=== PATIENT | female | born 1980 | race Caucasian/White ===

== ENCOUNTER 2016-09-23 17:12 | Emergency (ER) | payer SELFPAY ==
[2016-09-23 17:22] VITALS: BP 118/68
[2016-09-23] MEDS ORDERED: Sodium Chloride 0.9% 10 ML Syringe FLUSH PRN (17:52)
[2016-09-23] MEDS ORDERED: Sodium Chloride 0.9% 1,000 ML IV ONE (17:52)
[2016-09-23] MEDS ORDERED: Pantoprazole 40 MG Vial IVPUSH ONE (17:52)
[2016-09-23] MEDS ORDERED: Iopamidol 612 MG/ML 100 ML Bottle IVPUSH ONE (18:01)
[2016-09-23] MEDS ORDERED: Sodium Chloride 0.9% 100 ML IV ONE (18:01)
[2016-09-23 18:30] LABS: CHLORIDE,CL 102 mmol/L (98-107); SODIUM,NA 139 mmol/L (136-145)
--- NOTE | 2016-09-23 18:46 | EDM.PDOC ---
ED HPI GENERAL MEDICAL PROBLEM - General Chief Complaint: General Stated Complaint: hematemesis Time Seen by Provider: 09/23/16 17:38 Source of Information: Reports: Patient History Limitations: Reports: No limitations - History of Present Illness INITIAL COMMENTS - FREE TEXT/NARRATIVE: Patient reports chronic issues dealing with abdominal pain. 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 She does take depakote and states she has not had a drink in 5 years since her seizure. She presents today with complaints of bloody emesis on Wednesday as well as today. She is also complaining of blood when she wiped today. Denies that it was bloody diarrhea. She reports surgical history to include appendectomy, tubal ligation. No allergies or other medication use except for the depakote. She states that for the last 5 years she has not been able to eat enough to gain any weight. She has complaints of not feeling hungry and weight loss at times. She denies fever, shortness of breath, chest pain, recent illness or contact with anyone ill that she is aware. She does smoke 1/2 PPD. Onset: gradual Onset Date: 09/21/16 Duration: Chronic, Intermittent Location: Reports: abdomen Quality: Reports: Ache Severity: moderate Associated Symptoms: Reports: no other symptoms - Related Data Allergies Allergy/AdvReac Type Severity Reaction Status Date / Time No Known Drug Allergies Allergy Other Verified 09/23/16 17:22 Home Meds: Home Meds Divalproex Sodium [Depakote ER] 250 mg PO BID 01/15/14 [History] Past Medical History Neurological History: Reports: Migraines, Seizure Social & Family History - Tobacco Use Smoking Status *Q: Current Every Day Smoker Years of Tobacco use: 15 Packs/Tins Daily: 0.5 - Alcohol Use Days Per Week of Alcohol Use: 0 - Recreational Drug Use Recreational Drug Use: Yes Recreational Drug Type: Reports: Marijuana/Hashish Recreational Drug Use Frequency: Monthly ED ROS GENERAL - Review of Systems Review Of Systems: See Below Constitutional: Reports: no symptoms HEENT: Reports: No symptoms Respiratory: Reports: No Symptoms Cardiovascular: Reports: No symptoms Endocrine: Reports: no symptoms GI/Abdominal: Reports: Abdominal pain, Bloody stool, Hematemesis, Nausea, Vomiting : Reports: no symptoms Musculoskeletal: Reports: no symptoms Skin: Reports: no symptoms Neurological: Reports: No Symptoms Psychiatric: Reports: No symptoms Hematologic/Lymphatic: Reports: no symptoms Immunologic: Reports: no symptoms ED EXAM, GENERAL - Physical Exam Exam: See Below Exam Limited By: No limitations General Appearance: alert, WD/WN, no apparent distress Eye Exam: bilateral eye: EOMI, PERRL Ears: normal TMs Throat/Mouth: Normal inspection, Normal oropharynx, Other (poor dentition) Head: atraumatic, normocephalic Neck: normal inspection Respiratory/Chest: no respiratory distress, lungs clear, normal breath sounds, no accessory muscle use, chest non-tender Cardiovascular: normal peripheral pulses, regular rate, rhythm, no edema, no murmur Peripheral Pulses: 2+: posterior tibial (L), posterior tibial (R), dorsalis pedis (L), dorsalis pedis (R) GI/Abdominal: Normal Bowel Sounds, Soft, Tender, Other (crepitus on palpation to all quadrants) Extremities: normal inspection, normal range of motion, non-tender, no pedal edema, normal capillary refill Neurological: alert, oriented, CN II-XII intact, normal cognition, normal gait, normal reflexes, no motor/sensory deficits Psychiatric: normal affect, normal mood Lymphatic: no adenopathy Course - Vital Signs Last Recorded V/S: Last Vital Signs Temp 36.0 C 09/23/16 17:20 Pulse 82 09/23/16 17:20 Resp 18 09/23/16 17:20 BP 118/68 09/23/16 17:20 Pulse Ox 97 09/23/16 17:20 - Orders/Labs/Meds Orders: Active Orders 24 hr Category Date Time Status Abdomen Pelvis w Cont [CT] Stat Exams 09/23/16 17:52 Ordered AMYLASE [CHEM] Stat Lab 09/23/16 17:52 Ordered C-REACTIVE PROTEIN [CHEM] Stat Lab 09/23/16 17:52 Ordered COMPREHENSIVE METABOLIC PN,CMP [CHEM] Stat Lab 09/23/16 17:52 Ordered LIPASE [CHEM] Stat Lab 09/23/16 17:52 Ordered OCCULT BLD GASTRIC Stat Lab 09/23/16 17:56 Ordered Sodium Chloride 0.9% [Normal Saline] 1,000 ml Med 09/23/16 17:52 Ordered IV .BOLUS Sodium Chloride 0.9% [Saline Flush] Med 09/23/16 17:52 Ordered 10 ml FLUSH ASDIRECTED PRN Saline Lock Insert [OM.PC] Routine Oth 09/23/16 17:52 Ordered Medication Orders Sodium Chloride (Normal Saline) 1,000 mls @ 999 mls/hr IV .BOLUS ONE Stop: 09/23/16 18:52 Last Admin: 09/23/16 18:03 Dose: 999 mls/hr Sodium Chloride (Saline Flush) 10 ml FLUSH ASDIRECTED PRN PRN Reason: Keep Vein Open Labs: Laboratory Tests 09/23/16 09/23/16 09/23/16 Range/Units 18:00 18:02 18:02 WBC 10.9 H (4.0-10.0) x10^3/uL RBC 4.23 (4.00-5.50) x10^6/uL Hgb 13.5 (12.0-16.0) g/dL Hct 39.2 (33.0-47.0) % MCV 92.7 (78.0-93.0) fL MCH 31.9 (26.0-32.0) pg MCHC 34.4 (32.0-36.0) g/dL RDW Coeff of Kailee 12.6 (10.0-15.0) % Plt Count 169 (130-400) x10^3/uL Neut % (Auto) 69.5 (50.0-80.0) % Lymph % (Auto) 20.7 L (25.0-50.0) % Mathews % (Auto) 7.5 (2.0-11.0) % Eos % (Auto) 1.5 (0.0-4.0) % Baso % (Auto) 0.8 (0.2-1.2) % Sodium 139 (136-145) mmol/L Potassium 3.6 (3.5-5.1) mmol/L Chloride 102 (98-107) mmol/L Carbon Dioxide 28 (21-32) mmol/L BUN 7 (7-18) mg/dL Creatinine 0.7 (0.55-1.02) mg/dL Est Cr Clr Drug Dosing 82.71 mL/min Estimated GFR (MDRD) > 60 Glucose 85 (74-106) mg/dL Lactic Acid (0.4-2.0) mmol/L Calcium 8.7 (8.5-10.1) mg/dL Corrected Calcium 9.02 (8.5-10.1) mg/dL Total Bilirubin 0.4 (0.2-1.0) mg/dL AST 26 (15-37) U/L ALT 27 (14-59) U/L Alkaline Phosphatase 81 (46-116) U/L Total Protein 7.2 (6.4-8.2) g/dL Albumin 3.6 (3.4-5.0) g/dL Globulin 3.6 Albumin/Globulin Ratio 1.00 Amylase 102 (25-115) U/L Lipase 80 (73-393) U/L Urine Color Dark yellow H (YELLOW) Urine Appearance Cloudy H (CLEAR) Urine pH 6.0 (5.0-8.0) Ur Specific [place] >=1.030 Urine Protein 30 H (NEGATIVE) mg/dL Urine Glucose (UA) Negative (NEGATIVE) mg/dL Urine Ketones Trace H (NEGATIVE) mg/dL Urine Occult Blood Small H (NEGATIVE) Urine Nitrite Negative (NEGATIVE) Urine Bilirubin Negative (NEGATIVE) Urine Urobilinogen 0.2 (0.2) EU/dL Ur Leukocyte Esterase Negative (NEGATIVE) Urine RBC 0-5 (NOT SEEN) /HPF Urine WBC 0-5 (NOT SEEN) /HPF Ur Squamous Epith Cells Many H (NEGATIVE) /HPF Amorphous Sediment Few Urine Bacteria Few H (NEGATIVE) /HPF Urine Mucus Many H (NEGATIVE) /LPF 09/23/16 Range/Units 18:02 WBC (4.0-10.0) x10^3/uL RBC (4.00-5.50) x10^6/uL Hgb (12.0-16.0) g/dL Hct (33.0-47.0) % MCV (78.0-93.0) fL MCH (26.0-32.0) pg MCHC (32.0-36.0) g/dL RDW Coeff of Kailee (10.0-15.0) % Plt Count (130-400) x10^3/uL Neut % (Auto) (50.0-80.0) % Lymph % (Auto) (25.0-50.0) % Mathews % (Auto) (2.0-11.0) % Eos % (Auto) (0.0-4.0) % Baso % (Auto) (0.2-1.2) % Sodium (136-145) mmol/L Potassium (3.5-5.1) mmol/L Chloride (98-107) mmol/L Carbon Dioxide (21-32) mmol/L BUN (7-18) mg/dL Creatinine (0.55-1.02) mg/dL Est Cr Clr Drug Dosing mL/min Estimated GFR (MDRD) Glucose (74-106) mg/dL Lactic Acid 0.7 (0.4-2.0) mmol/L Calcium (8.5-10.1) mg/dL Corrected Calcium (8.5-10.1) mg/dL Total Bilirubin (0.2-1.0) mg/dL AST (15-37) U/L ALT (14-59) U/L Alkaline Phosphatase (46-116) U/L Total Protein (6.4-8.2) g/dL Albumin (3.4-5.0) g/dL Globulin Albumin/Globulin Ratio Amylase (25-115) U/L Lipase (73-393) U/L Urine Color (YELLOW) Urine Appearance (CLEAR) Urine pH (5.0-8.0) Ur Specific [place] Urine Protein (NEGATIVE) mg/dL Urine Glucose (UA) (NEGATIVE) mg/dL Urine Ketones (NEGATIVE) mg/dL Urine Occult Blood (NEGATIVE) Urine Nitrite (NEGATIVE) Urine Bilirubin (NEGATIVE) Urine Urobilinogen (0.2) EU/dL Ur Leukocyte Esterase (NEGATIVE) Urine RBC (NOT SEEN) /HPF Urine WBC (NOT SEEN) /HPF Ur Squamous Epith Cells (NEGATIVE) /HPF Amorphous Sediment Urine Bacteria (NEGATIVE) /HPF Urine Mucus (NEGATIVE) /LPF Meds: Medications Generic Name Dose Route Start Last Admin Trade Name Freq PRN Reason Stop Dose Admin Sodium Chloride 1,000 mls @ 999 mls/hr 09/23/16 17:52 09/23/16 18:03 Normal Saline IV 09/23/16 18:52 999 mls/hr .BOLUS ONE Administration Sodium Chloride 10 ml 09/23/16 17:52 Saline Flush FLUSH ASDIRECTED PRN Keep Vein Open Discontinued Medications Generic Name Dose Route Start Last Admin Trade Name Freq PRN Reason Stop Dose Admin Sodium Chloride 100 mls @ 2 mls/sec 09/23/16 18:01 Normal Saline IV 09/23/16 18:02 ONETIME ONE Iopamidol 100 ml 09/23/16 18:01 Isovue-300 (61%) IVPUSH 09/23/16 18:02 ONETIME ONE Pantoprazole Sodium 40 mg 09/23/16 17:52 09/23/16 18:03 Protonix Iv IVPUSH 09/23/16 17:53 40 mg ONETIME ONE Administration - Re-Assessments/Exams Free Text/Narrative Re-Assessment/Exam: 09/23/16 20:08 No abnormalities found on CT exam with the exception of some cystic changes to her ovaries. Minimal free air. Labs grossly normal, urine did exhibit mucous, blood, bacteria. Negative nitrates, leukocytes. Not drinking well Departure - Departure Time of Disposition: 20:02 Disposition: Home, Self-Care 01 Condition: good Clinical Impression: Chronic GI bleeding, Functional gastrointestinal disturbance - Discharge Information Instructions: Gastrointestinal Bleeding, Esophagogastroduodenoscopy, Colonoscopy, [id number] Forms: ED Department Discharge Additional Instructions: You need to follow up with primary care regarding the intermittent blood in your emesis and bowel movement from today. You should have a referral to a supervisor drying and winding for a possible EGD and/or Colonoscopy You have some ovarian cystic changes that you should follow up with a TICKET DISPENSER CHANGER Stay hydrated, you may want to start a regimen of prilosec over the counter Please return if you have any sudden bloody vomiting or red bloody stools that persist Call us with any questions or if you are unsure whether or not to return - My Orders Last 24 Hours: My Active Orders 09/23/16 17:52 Abdomen Pelvis w Cont [CT] Stat AMYLASE [CHEM] Stat C-REACTIVE PROTEIN [CHEM] Stat COMPREHENSIVE METABOLIC PN,CMP [CHEM] Stat LIPASE [CHEM] Stat Sodium Chloride 0.9% [Normal Saline] 1,000 ml IV .BOLUS Sodium Chloride 0.9% [Saline Flush] 10 ml FLUSH ASDIRECTED PRN Saline Lock Insert [OM.PC] Routine 09/23/16 17:56 OCCULT BLD GASTRIC Stat - Assessment/Plan Last 24 Hours: My Active Orders 09/23/16 17:52 Abdomen Pelvis w Cont [CT] Stat AMYLASE [CHEM] Stat C-REACTIVE PROTEIN [CHEM] Stat COMPREHENSIVE METABOLIC PN,CMP [CHEM] Stat LIPASE [CHEM] Stat Sodium Chloride 0.9% [Normal Saline] 1,000 ml IV .BOLUS Sodium Chloride 0.9% [Saline Flush] 10 ml FLUSH ASDIRECTED PRN Saline Lock Insert [OM.PC] Routine 09/23/16 17:56 OCCULT BLD GASTRIC Stat
== END 2016-09-23 20:15 | disposition home or self-care (01) ==
LOC: VM.ED 17:12
DX: K92.2 Gastrointestinal hemorrhage, unspecified (principal); F17.210 Nicotine dependence, cigarettes, uncomplicated
CPT/HCPCS: 36415; 74177; 80053; 81001; 82150; 83605; 83690; 85025; 86140; 96361; 96374; 99285; C9113; J7030; J7050; Q9967; 99284-GF

== ENCOUNTER 2016-10-02 07:44 | Day surgery (SDC) | payer SELFPAY ==
[~2016-10-02 07:44] MED LIST: Lactated Ringers 1,000 ML IV SCH; Sodium Chloride 0.9% 10 ML Syringe FLUSH PRN
[2016-10-02] MEDS ORDERED: fentaNYL 100 MCG/2 ML SDV ONE (08:23)
[2016-10-02] MEDS ORDERED: Propofol 200 MG/20 ML SDV ONE ×2 (08:23→10:18)
[2016-10-02 10:02] VITALS: BP 95/59
--- NOTE | 2016-10-02 15:02 | OR ---
PREOPERATIVE DIAGNOSES: Hemoptysis, nausea and vomiting. POSTOPERATIVE DIAGNOSES: Significant antritis with superficial ulcerations, mild gastroesophageal reflux disease. PROCEDURE PROPOSED: Upper gastroscope panendoscopy with duodenal and antral biopsies. PROCEDURE DONE: Upper gastroscope panendoscopy with duodenal and antral biopsies. INDICATION: This is a 36-year-old female bothered with lot of nausea, vomiting, hemoptysis, early satiety and felt should be gastroscope. TECHNIQUE: The patient was brought to the endoscopy suite, placed in the left lateral decubitus position. She was sedated per BREAD PANNER with propofol and the flexible video gastroscope was then passed transorally and under visualization as well into the duodenum. The proximal and distal duodenum appeared normal. Biopsies were taken from the duodenum. This antrum did reveal significant antritis with some mild deformity and some superficial ulcerations and definitely an area that could have been bleeding. The body of the stomach otherwise looked healthy. Biopsies were also taken from the antrum. The GE junction did not reveal any hiatal hernia, but she did have 1 tiny ulceration right at the GE junction. There was no signs of any stenosis or Schatzki's ring and the remainder of the esophagus was normal as the scope was then withdrawn. She tolerated the procedure well. FINAL IMPRESSION: 1. Mild gastroesophageal reflux disease. 2. Significant antritis with superficial ulcerations. PLAN: The patient will be treated with Prilosec daily for 3 months. She also needs to cut back on her caffeine consumption. She does drink a lot of Mountain Dew. She also smokes half pack to a pack per day and she needs to stop smoking and try to avoid aspirin, ibuprofen, and Aleve and follow up with Dr. Elmore as needed. SCM: 10/02/2016 09:45:38 MODL: 10/02/2016 14:51:23 /[id number]
--- NOTE | 2016-10-05 08:17 | OR ---
PREOPERATIVE DIAGNOSIS: Hematochezia. POSTOPERATIVE DIAGNOSIS: Ulcerated internal hemorrhoids, otherwise normal colon. PLANNED PROCEDURE: Total flexible colonoscopy. PROCEDURE DONE: Total flexible colonoscopy with multiple random biopsies. INDICATION: This is a 36-year-old female, who has been having some abdominal discomfort, some intermittent hematochezia and felt that she should be colonoscoped in addition to her EGD. TECHNIQUE: The patient was already sedated with propofol per NET APPLICATIONS DEVELOPER. She was in the left lateral decubitus position. The flexible video colonoscope was then passed transanally and under visualization advanced to the cecum. The examination of the colon was essentially normal throughout the ascending, transverse, descending, sigmoid and rectal colon, but I did do random biopsies throughout all areas of the colon. In the anal area, she was noted to have what appeared to be a partially healed ulcerated internal hemorrhoid which likely has been the source of her bleeding and will be treated as such. The scope was then withdrawn. She tolerated the procedure well. FINAL IMPRESSION: 1. Normal colonoscopic exam. 2. Healing ulcerated internal hemorrhoids. PLAN: Anusol HC suppositories nightly for 10 nights. Follow up with Dr. Elmore as needed. Return to clinic if the bleeding persists for possible hemorrhoid banding. SCM: 10/02/2016 09:45:38 MODL: 10/02/2016 14:52:56 /[id number]
--- NOTE | 2016-10-30 07:50 | LETTER ---
10/28/2016 RE: ARIEL MANTILLA PERSONS : 1980 Dear Ariel, The biopsies taken from your small intestine were entirely normal, this would indicate that you do not have any evidence of celiac disease or sprue. I also took some biopsies from your stomach which revealed some mild gastritis which is basically just an inflammation and this could be related to taking medications like ibuprofen or aspirin, and possibly if you drink alcohol it could be related to that also. This is a very common finding. There was also no evidence of the bacteria known as Helicobacter pylori in your stomach. Also the biopsies taken from your colon revealed no pathologic abnormalities, this would indicate you do not have any underlying colitis of any type. If you have any further questions regarding this feel free to call. Respectfully,
== END 2016-10-02 11:10 | disposition home or self-care (01) ==
LOC: VM.SDS 07:44
PROVIDERS: ATTEND Surgery
DX: K29.50 Unspecified chronic gastritis without bleeding (principal); K25.9 Gastric ulcer, unspecified as acute or chronic, without hemorrhage or perforation; K31.9 Disease of stomach and duodenum, unspecified; K21.9 Gastro-esophageal reflux disease without esophagitis; K64.8 Other hemorrhoids; G40.409 Other generalized epilepsy and epileptic syndromes, not intractable, without status epilepticus; Z79.899 Other long term (current) drug therapy; F17.210 Nicotine dependence, cigarettes, uncomplicated; Z98.51 Tubal ligation status; Z98.890 Other specified postprocedural states
CPT/HCPCS: 00810; 43239; 45380; J2704; J3010; J7120

== ENCOUNTER 2021-04-01 13:00 | Emergency (ER) | payer MEDICAID, OTHER ==
[2021-04-01] MEDS ORDERED: Ketorolac 30 MG/ML SDV IM ONE (13:26)
[2021-04-01] MEDS ORDERED: Promethazine 25 MG/ML SDV IM ONE (13:26)
[2021-04-01 13:28] VITALS: BP 100/57; PULSE 88
--- NOTE | 2021-04-01 13:30 | EDM.PDOC ---
ED HPI GENERAL MEDICAL PROBLEM - General Chief Complaint: Headache Stated Complaint: HEADACHE,NAUSEA,HOT FLASHES Time Seen by Provider: 04/01/21 13:10 Source of Information: Reports: Patient - History of Present Illness INITIAL COMMENTS - FREE TEXT/NARRATIVE: Patient presents the ER with ongoing left frontal/temporal headache that started about 10:00 last night she rates the pain today is a 10 out of 10 she tried taking her seizure medication and some Tylenol which is not helped with the headache but is made her very sleepy. She states this is not the worst headache of her life and she has multiple headaches weekly. She is currently under treatment with a neurologist and last seen him about a month ago she has had numerous work-ups with CTs and MRIs and all have been negative. She also states she has had some nausea with vomiting x3 since last night 2 times this morning. She denies any vision changes or hearing changes any weakness numbness or tingling or loss of sensation. She states this typically fits her headache pattern. Duration: Hour(s): Quality: Reports: Throbbing Severity: Severe Improves with: Reports: Rest Worsens with: Reports: None Associated Symptoms: Reports: No Other Symptoms, Headaches. Denies: Confusion, Chest Pain, Cough, cough w sputum, Diaphoresis, Fever/Chills, Loss of Appetite, Nausea/Vomiting, Shortness of Breath, Weakness Treatments STOKER INSTALLATION MECHANIC: Reports: Acetaminophen Headache Pain Score (Numeric/FACES): 8 - Related Data Allergies Allergy/AdvReac Type Severity Reaction Status Date / Time No Known Drug Allergies Allergy Other Verified 04/01/21 13:24 Home Meds: Home Meds Divalproex Sodium [Depakote ER] 250 mg PO BID 01/15/14 [History] Acetaminophen [Tylenol Extra Strength] 1,000 mg PO Q6H PRN 09/29/16 [History] Past Medical History Gastrointestinal History: Reports: Other (See Below) Other Gastrointestinal History: HAS BEEN VOMITING BLOOD AND IS UNABLE TO GAIN WT Neurological History: Reports: Seizure, Other (See Below) Other Neuro History: encephalopathy Psychiatric History: Reports: Addiction, Anxiety, Depression, Suicide Attempt Endocrine/Metabolic History: Reports: Osteoporosis - Past Surgical History GI Surgical History: Reports: Appendectomy, Hernia Repair/Other Female Surgical History: Reports: Tubal Ligation ED ROS GENERAL - Review of Systems Review Of Systems: See Below Constitutional: Reports: No Symptoms HEENT: Reports: No Symptoms. Denies: Vision Change Respiratory: Reports: No Symptoms Cardiovascular: Reports: No Symptoms Endocrine: Reports: No Symptoms GI/Abdominal: Reports: No Symptoms : Reports: No Symptoms Musculoskeletal: Reports: No Symptoms Skin: Reports: No Symptoms Neurological: Reports: Headache. Denies: Confusion, Dizziness, Numbness, Paresthesia, Pre-Existing Deficit, Seizure, Syncope, Tingling, Trouble Speaking, Difficulty Walking, Weakness, Change in Speech, Gait Disturbance Psychiatric: Reports: No Symptoms Hematologic/Lymphatic: Reports: No Symptoms Immunologic: Reports: No Symptoms - Physical Exam Exam: See Below Exam Limited By: No Limitations General Appearance: Alert, WD/WN, No Apparent Distress, Other (Upon entering the room for the exam patient is laying down on the bed no acute distress noted had to slightly shake her to wake her up patient states she is is very tired status post taking her seizure medication which is pretty normal for her when she takes her seizure medication and has a migraine) Eye Exam: Bilateral Eye: EOMI, Normal Inspection, PERRL Ears: Normal External Exam, Normal Canal, Hearing Grossly Normal, Normal TMs Throat/Mouth: Normal Inspection, Normal Lips, Normal Teeth, Normal Gums, Normal Oropharynx, Normal Voice, No Airway Compromise Head Exam: Atraumatic, Normocephalic. No: Scalp Tenderness, Sinus Tenderness Neck: Normal Inspection, Supple, Non-Tender, Full Range of Motion, Other (Negative nuchal signs or symptoms). No: Lymphadenopathy (L) Respiratory/Chest: No Respiratory Distress, Lungs Clear, Normal Breath Sounds, No Accessory Muscle Use, Chest Non-Tender Cardiovascular: Normal Peripheral Pulses, Regular Rate, Rhythm, No Edema, No Gallop, No JVD, No Murmur, No Rub GI/Abdominal: Normal Bowel Sounds, Soft, Non-Tender, No Organomegaly. No: Guarding, Rigid, Rebound, Tender Neuro Exam (Abbreviated): Alert, Oriented, CN II-XII Intact, Normal Cognition, Normal Reflexes, No Motor/Sensory Deficits, Other (5/ 5 upper extremity lower extremity strength bilateral) Back Exam: Full Range of Motion Extremities: Normal Inspection, Normal Range of Motion, Non-Tender, No Pedal Edema Psychiatric: Normal Affect, Normal Mood Skin Exam: Warm, Dry, Intact, Normal Color, No Rash Course - Vital Signs Text/Narrative:: Toradol 30 mg IM Phenergan 12.5 mg IM Patient was rechecked states she feels much better she is okay with discharge disposition and going home Zofran and Phenergan prescription given to the patient Last Recorded V/S: Last Vital Signs Temp 36.9 C 04/01/21 13:05 Pulse 88 04/01/21 13:05 Resp 16 04/01/21 13:05 BP 100/57 L 04/01/21 13:05 Pulse Ox 96 04/01/21 13:05 - Orders/Labs/Meds Meds: Medications Discontinued Medications Generic Name Dose Route Start Last Admin Trade Name Romain PRN Reason Stop Dose Admin Ketorolac Tromethamine 30 mg 04/01/21 13:26 04/01/21 13:34 Ketorolac 30 Mg/Ml Sdv IM 04/01/21 13:27 30 mg ONETIME ONE Administration Promethazine HCl 12.5 mg 04/01/21 13:26 04/01/21 13:34 Promethazine 25 Mg/Ml Sdv IM 04/01/21 13:27 12.5 mg ONETIME ONE Administration Departure - Departure Time of Disposition: 14:30 Disposition: Home, Self-Care 01 Condition: Good Clinical Impression: Migraine headache, Nausea and vomiting - Discharge Information *PRESCRIPTION DRUG MONITORING PROGRAM REVIEWED*: No *COPY OF PRESCRIPTION DRUG MONITORING REPORT IN PATIENT STEPHANY: No Instructions: Migraine Headache, [id number] Forms: ED Department Discharge Care Plan Goals: Continue take all your medications as directed You may take [id number] Tylenol 1-2 tablet every 4-6 hours for the next 24 hours as needed you may also continue to take ibuprofen [id number] 400 to 600 mg every 6-8 hours for the next 24 hours Follow-up with your primary care provider in the next 24 to 48 hours You may take the Zofran 4 mg every 4-6 hours as needed #30 you may take the Phenergan 25 mg 1 tablet every 4-6 hours as needed number of 12 Return to the emergency room if anything changes or gets worse Sepsis Event Note (ED) - Focused Exam Vital Signs: Vital Signs Temp Pulse Resp BP Pulse Ox 04/01/21 13:05 36.9 C 88 16 100/57 L 96 - Problem List & Annotations (1) Migraine headache SNOMED Code(s): 42073172 Code(s): G43.909 - MIGRAINE, UNSP, NOT INTRACTABLE, WITHOUT STATUS MIGRAINOSUS Status: Acute Current Visit: No (2) Nausea and vomiting SNOMED Code(s): 53843291 Code(s): R11.2 - NAUSEA WITH VOMITING, UNSPECIFIED Status: Acute Current Visit: No
== END 2021-04-01 14:35 | disposition home or self-care (01) ==
LOC: VM.ED 13:00
DX: G43.909 Migraine, unspecified, not intractable, without status migrainosus (principal)
CPT/HCPCS: 96372; 99283; J1885; J2550

== ENCOUNTER 2022-06-17 20:38 | Emergency (ER) | payer MEDICAID ==
[2022-06-17 21:00] VITALS: BP 149/70; PULSE 77
== END 2022-06-17 22:50 | disposition home or self-care (01) ==
LOC: VM.ED 20:38
DX: S82.832A Other fracture of upper and lower end of left fibula, initial encounter for closed fracture (principal); W19.XXXA Unspecified fall, initial encounter
CPT/HCPCS: 73600-LT; 73620-LT; 99283

== ENCOUNTER 2022-09-24 21:28 | Emergency (ER) | payer MEDICAID ==
[2022-09-24] MEDS ORDERED: Prochlorperazine 10 MG/2 ML SDV IM ONE (21:43)
[2022-09-24] MEDS ORDERED: Ketorolac 30 MG/ML SDV IM ONE (21:43)
[2022-09-24] MEDS ORDERED: Take Home: Ondansetron 4 MG Tab.DIS, 5 Tab Pack PO ONE (22:57)
[2022-09-24] MEDS ORDERED: SUMAtriptan 6 MG/0.5 ML SDV SUBCUT ONE (22:57)
[2022-09-24 23:13] VITALS: BP 120/70; PULSE 78
== END 2022-09-24 23:10 | disposition home or self-care (01) ==
LOC: VM.ED 21:28
DX: G43.909 Migraine, unspecified, not intractable, without status migrainosus (principal); Z72.0 Tobacco use
CPT/HCPCS: 96372; 99283; J0780; J1885; J3030; Q0162

== ENCOUNTER 2022-12-18 18:55 | Emergency (ER) | payer SELFPAY ==
[2022-12-18 19:21] VITALS: BP 154/88; PULSE 77
[2022-12-18] MEDS: Lidocaine 1% 10 ML MDV INJECT ONE (19:32)
[2022-12-18] MEDS: Diphtheria,Pertussis(Acell),Tetanus Vaccine 0.5 ML Syringe IM ONE (19:32)
== END 2022-12-18 19:41 | disposition home or self-care (01) ==
LOC: VM.ED 18:55
DX: S61.215A Laceration without foreign body of left ring finger without damage to nail, initial encounter (principal); F17.210 Nicotine dependence, cigarettes, uncomplicated; Z23 Encounter for immunization; W26.9XXA Contact with unspecified sharp object(s), initial encounter
CPT/HCPCS: 12001; 90471; 90715; 99282-25; 99283; J3490

== ENCOUNTER 2024-08-30 07:33 | Emergency (ER) | payer SELFPAY ==
[2024-08-30] MEDS: Ondansetron 4 MG/2 ML SDV IVPUSH ONE (07:57)
[2024-08-30] MEDS: Lactated Ringers 1,000 ML IV ONE (07:57)
[2024-08-30 08:15] LABS: BASOPHILS PERCENT AUTO 0.2 % (0.2-1.2); EOSINOPHILS ABSOLUTE AUTO 0.1 x10^3/uL (0.0-0.5); EOSINOPHILS PERCENT AUTO 0.6 % (0.0-4.0); HEMATOCRIT 39.4 % (33.0-47.0); HEMOGLOBIN 13.9 g/dL (12.0-16.0); IMMATURE GRAN ABSOLUTE AUTO 0.04 x10^3/uL (0.00-0.07); MEAN CORPUSCULAR HEMOGLOBIN 32.3 pg (26.0-32.0); MEAN CORPUSCULAR HGB CONC 35.3 g/dL (32.0-36.0); MEAN CORPUSCULAR VOLUME 91.6 fL (78.0-93.0); MONOCYTES PERCENT AUTO 6.4 % (2.0-11.0); NEUTROPHILS ABSOLUTE AUTO 13.1 x10^3/uL (1.8-7.7); NEUTROPHILS PERCENT AUTO 80.6 % (50.0-80.0); PLATELET COUNT,PLT 235 x10^3/uL (130-400); WHITE BLOOD CELL COUNT,WBC 16.3 x10^3/uL (4.0-10.0)
[2024-08-30 08:24] LABS: A/G RATIO 0.92; ALANINE AMINOTRANSFERASE,ALT 22 U/L (14-59); ALBUMIN 3.6 g/dL (3.4-5.0); ALKALINE PHOSPHATASE 89 U/L (46-116); ANION GAP 15.6 mmol/L (5-15); ASPARTATE AMNIOTRANSFERASE,AST 25 U/L (15-37); BILIRUBIN TOTAL 0.4 mg/dL (0.2-1.0); BLOOD UREA NITROGEN,BUN 8 mg/dL (7-18); CALCIUM 8.9 mg/dL (8.5-10.1); CARBON DIOXIDE,CO2 25 mmol/L (21-32); CHLORIDE,CL 95 mmol/L (98-107); CREATININE 0.7 mg/dL (0.55-1.02); ESTIMATED GFR 111 mL/min (>=60); GLUCOSE RANDOM 109 mg/dL (70-99); LIPASE 14 U/L (19-71); MAGNESIUM 1.5 mg/dL (1.8-2.4); POTASSIUM,K 3.6 mmol/L (3.5-5.1); PROTEIN TOTAL,TP 7.5 g/dL (6.4-8.2); SODIUM,NA 132 mmol/L (136-145)
[2024-08-30 08:35] LABS: APPEARANCE,URINE CLEAR (CLEAR); BILIRUBIN,URINE SMALL (NEGATIVE); COLOR,URINE YELLOW (YELLOW); GLUCOSE,URINE NEGATIVE (NEGATIVE); KETONES,URINE 40 mg/dL (NEGATIVE); LEUKOCYTE ESTERASE,URINE NEGATIVE (NEGATIVE); NITRITE,URINE NEGATIVE (NEGATIVE); OCCULT BLOOD,URINE MODERATE (NEGATIVE); PH,URINE 6.5 (5.0-8.0); PROTEIN,URINE TRACE mg/dL (NEGATIVE)
[2024-08-30] MEDS: Prochlorperazine 10 MG/2 ML SDV IV ONE (08:35)
[2024-08-30] MEDS: Clindamycin Phosphate in D5W 600 MG in Premix Bag 1 BAG IV ONE (08:35)
[2024-08-30] MEDS: Lactated Ringers 1,000 ML IV SCH (08:35)
[2024-08-30 08:43] LABS: BACTERIA,URINE RARE /HPF (NOT SEEN); SQUAMOUS EPITHELIAL CELLS,UR FEW /HPF (NOT SEEN); WBC,URINE 0-5 /HPF (NOT SEEN)
[2024-08-30] MEDS: HYDROmorphone 0.5 MG/0.5 ML Syringe IVPUSH ONE (09:02)
[2024-08-30] MEDS: Iopamidol 612 MG/ML 100 ML Bottle IVPUSH ONE (09:10)
[2024-08-30 11:25] VITALS: BP 110/68; PULSE 74
== END 2024-08-30 10:45 | disposition home or self-care (01) ==
LOC: VM.ED 07:33
DX: K04.7 Periapical abscess without sinus (principal); R11.2 Nausea with vomiting, unspecified; Z79.899 Other long term (current) drug therapy; Z79.2 Long term (current) use of antibiotics; Z90.49 Acquired absence of other specified parts of digestive tract
CPT/HCPCS: 74177; 80053; 81001; 83605; 83690; 83735; 85025; 96361; 96374; 96375; 99283; 99284-25; J0736; J0780; J2405; J7120; Q9967